=== PATIENT | female | born 1970 | race Caucasian/White ===

== ENCOUNTER 2017-02-15 10:25 | Emergency (ER) | payer SELFPAY ==
[~2017-02-15] VITALS: Ht 157.5 cm; Wt 51.5 kg
[~2017-02-15 10:25] MED LIST: LISI-167 PO; METR500T PO; NICO1PAT4 TD; ONDA4TAB7 PO; OXYC5TAB3 PO; VALA500T4; VANC250C2
[2017-02-15 11:26] LABS: HEMOGLOBIN 12.8 g/dL (11.7-16.4)
[2017-02-15 11:40] LABS: BLOOD UREA NITROGEN 11 mg/dL (7-18)
[2017-02-15 11:44] LABS: ASPARTATE AMINO TRANSFERASE 60 U/L (15-37)
[2017-02-15 12:27] VITALS: BP 139/95
== END 2017-02-15 13:01 | disposition home or self-care (01) ==
LOC: ED 12:50
DX: I10 Essential (primary) hypertension (principal); R00.2 Palpitations; B00.1 Herpesviral vesicular dermatitis
CPT/HCPCS: 36415; 71010; 80053; 85025; 93005; 99285

== ENCOUNTER 2019-06-03 07:30 | Emergency (ER) | payer SELFPAY ==
[~2019-06-03] VITALS: Ht 157.5 cm; Wt 48.2 kg
[~2019-06-03 07:30] MED LIST changes: +NICO-486 TD; -NICO1PAT4 TD; -VANC250C2; +VANC250C3
[2019-06-03] MEDS ORDERED: ASPIRIN 81 MG TABLET CHEW ONE (08:11)
[2019-06-03] MEDS ORDERED: LORazepam 1MG TABLET ONE (08:12)
[2019-06-03] MEDS ORDERED: BENZOCAINE 20% SPRAY 0.5ML ONE (08:18)
[2019-06-03] MEDS ORDERED: TETRACAINE TP ONE (08:30)
[2019-06-03] MEDS ORDERED: ASPIRIN 81 MG TABLET CHEW PO ONE (08:30)
[2019-06-03] MEDS ORDERED: LORazepam 2 MG/ML, 1ML IVPush ONE (08:30)
[2019-06-03] MEDS ORDERED: BUTAMBEN TP ONE (08:30)
[2019-06-03] MEDS ORDERED: SODIUM CHLORIDE FLUSH 10ML SYR IVF ONE (08:30)
[2019-06-03] MEDS ORDERED: BENZOCAINE TP ONE (08:30)
[2019-06-03 08:37] LABS: BASOPHILS # (AUTO) 0.03 x10^3/uL (0-0.1); BASOPHILS % (AUTO) 0 % (0-1); EOSINOPHILS # (AUTO) 0.28 x10^3/uL (0-0.4); EOSINOPHILS % (AUTO) 4 % (1-7); LYMPHOCYTES # (AUTO) 1.38 x10^3/uL (1-3.4); LYMPHOCYTES % (AUTO) 17 % (22-44); MD NO; MEAN CORPUSCULAR HEMOGLOBIN 25.2 pg (27.0-34.8); MEAN CORPUSCULAR HGB CONC 31.5 g/dL (32.4-35.8); MEAN CORPUSCULAR VOLUME 79.9 fL (80-100); MEAN PLATELET VOLUME 10.4 fL (7.4-10.4); MONOCYTES # (AUTO) 0.57 x10^3/uL (0.2-0.8); MONOCYTES % (AUTO) 7 % (2-9); NEUTROPHILS # (AUTO) 5.81 x10^3/uL (1.8-6.8); NEUTROPHILS % (AUTO) 72 % (42-75); PLATELET COUNT 203 x10^3/uL (130-400); RED BLOOD COUNT 5.24 x10^6/uL (3.82-5.3); RED CELL DISTRIBUTION WIDTH 14.6 % (9.6-15.2)
[2019-06-03 08:39] LABS: ALBUMIN 4.3 g/dL (3.4-5.0); ANION GAP 8 mmol/L (5-15); CALCIUM 9.8 mg/dL (8.5-10.1); CHLORIDE 102 mmol/L (98-107)
[2019-06-03 08:44] LABS: CREATININE 1.04 mg/dL (0.55-1.02); TROPONIN I < 0.015 ng/mL (0.000-0.045)
[2019-06-03 09:31] VITALS: BP 161/85
== END 2019-06-03 09:34 | disposition home or self-care (01) ==
LOC: ED 09:20
DX: R07.89 Other chest pain (principal); F41.1 Generalized anxiety disorder; I10 Essential (primary) hypertension; K04.7 Periapical abscess without sinus; F17.210 Nicotine dependence, cigarettes, uncomplicated
CPT/HCPCS: 36415; 41800; 71045; 80048; 82040; 83880; 84484; 85025; 93005; 96374; 99284; J2060